=== PATIENT | male | born 1995 | race Caucasian/White ===

== ENCOUNTER 2022-07-31 01:39 | Emergency (ER) | payer OTHER ==
[~2022-07-31] VITALS: Ht 185.4 cm; Wt 98.8 kg
== END 2022-07-31 05:28 | disposition home or self-care (01) ==
LOC: ED 01:39
DX: T40.411A Poisoning by fentanyl or fentanyl analogs, accidental (unintentional), initial encounter (principal); N50.812 Left testicular pain; N50.811 Right testicular pain
CPT/HCPCS: 76870; 96374; 99284-25; A9270; J2405